=== PATIENT | male | born 1980 | race Caucasian/White ===

== ENCOUNTER → 2023-06-18 14:35 | Outpatient (CLI) | payer BC, SELFPAY ==
--- NOTE | ~2023-06-18 | XR_ITS ---
XR chest 2V DATE: 06/18/2023 14:49 INDICATION: Cough for one month TECHNIQUE: 2 views COMPARISON: 01/15/2007 FINDINGS: Normal heart size. No hilar or mediastinal enlargement. No pulmonary infiltrate or consolid ation, pleural effusion or pulmonary vascular congestion or pneumothorax is detected. IMPRESSION: Negative Reviewed, dictated and finalized at location B. IMPRESSION: Negative
== END ==
PROVIDERS: PCP Nurse Practitioner Family; Visit Provider Nurse Practitioner Family
DX: R05.9 Cough, unspecified (principal)
CPT/HCPCS: 71046

== ENCOUNTER 2023-06-19 12:34 | Outpatient (CLI) | payer BC, SELFPAY ==
[2023-06-19 15:08] LABS: Basophils Absolute Auto 0.1 K/mm3 (0.0-0.1); Basophils Percent Auto 0.9 % (0.2-1.2); Eosinophils Absolute Auto 0.2 K/mm3 (0-0.3); Eosinophils Percent Auto 3.2 % (0-4.4); Hematocrit 46.7 % (42.0-52.0); Hemoglobin 15.6 g/dL (14.0-18.0); Immature Granulocyte Absolute 0.02 K/mm3 (0.00-0.031); Immature Granulocyte Percent A 0.3 % (0-0.5); Lymphocytes Absolute Auto 1.97 K/mm3 (0.9-3.2); Lymphocytes Percent Auto 28.5 % (18.3-44.2); Mean Corpuscular HGB Conc 33.4 g/dl (32-36); Mean Corpuscular Hemoglobin 29.7 pg (26-34); Mean Corpuscular Volume 88.8 fl (80-100); Mean Platelet Volume 10.4 fl (7.4-10.4); Monocytes Absolute Auto 0.4 K/mm3 (0.1-0.6); Monocytes Percent Auto 5.5 % (2.6-8.5); Neutrophils Absolute Auto 4.3 K/mm3 (1.3-6.7); Neutrophils Percent Auto 61.6 % (45.5-73.1); Platelet Count Result 300 k/mm3 (150-375); Red Blood Count 5.26 M/mm3 (4.6-6.20); Red Cell Distribution Width 12.2 % (11.5-14.5); White Blood Count 6.9 K/mm3 (4.5-10.0)
[2023-06-19 15:39] LABS: Alanine Aminotransferase 33 U/L (6-50); Albumin Level 4.8 g/dL (3.5-5.1); Alkaline Phosphatase 64 U/L (38-126); Anion Gap 11 mmol/L (8-16); Aspartate Amino Transferase 39 U/L (17-59); Bilirubin,Total 1.2 mg/dL (0.2-1.3); Blood Urea Nitrogen 18 mg/dL (9-20); Calcium 9.5 mg/dL (8.4-10.2); Carbon Dioxide 29 mmol/L (22-30); Chloride 101 mmol/L (98-107); Cholesterol 237 mg/dL (0-200); Estimated Glomerular Filt Rate > 60; Glucose 101 mg/dL (65-110); HDL Direct 50 mg/dL; LDL Cholesterol Direct 149 mg/dL; Potassium 4.3 mmol/L (3.4-5.0); Sodium 141 mmol/L (137-145); Triglycerides 125 mg/dL (<150)
[2023-06-22 10:41] LABS: Vitamin D 1,25 (OH)2 Total 43 pg/mL (18-72); Vitamin D2 1,25 (OH)2 <8 pg/mL; Vitamin D3 1,25 (OH)2 43 pg/mL
[2023-06-23 21:24] LABS: PSA, Total 0.7 ng/mL (<=4.0)
== END 2023-06-19 12:35 | disposition home or self-care (01) ==
LOC: ANHGOSHLAB 12:36
PROVIDERS: PCP Nurse Practitioner Family; Visit Provider Nurse Practitioner Family
DX: Z00.00 Encounter for general adult medical examination without abnormal findings (principal); E55.9 Vitamin D deficiency, unspecified; Z12.5 Encounter for screening for malignant neoplasm of prostate; I10 Essential (primary) hypertension
CPT/HCPCS: 36415; 80053; 80061; 82607; 82652; 84153; 84154; 84443; 85025

== ENCOUNTER 2023-07-24 00:44 | Day surgery (SDC) | payer BC, SELFPAY ==
[2023-07-16 15:12] VITALS: BMI 28.1
[2023-07-24 09:02] VITALS: BP 110/80; PULSE 76; RESP 18; TEMP 36.4; O2SAT 100
[2023-07-24] MEDS: LACTATED RINGERS 1,000 ML 150 ML IV CONT (09:08)
--- NOTE | 2023-07-24 09:21 | PM.HPGS ---
History of Present Illness History of Present Illness Consent: Risks, benefits, and alternatives have been discussed and questions answered. Patient agrees to proceed with procedure. Chief complaint: Fam hx of malignant neoplasm of digestive organs Narrative: Jacek Clark is a 43 year old male here for first screening colonoscopy, father and grandfather had colon cancer Review of Systems Constitutional: Constitutional: Denies headache(s) and Denies weakness Eyes: Eyes: Denies blurry vision ENT: Reports Normal hearing present, Denies headache(s) and Denies neck pain Cardiovascular: Cardiovascular: Denies chest pain and Denies dyspnea Respiratory: Respiratory: Denies dyspnea Gastrointestinal: Gastrointestinal: Reports no additional gastrointestinal complaints Genitourinary: Genitourinary: Denies dysuria Musculoskeletal: Musculoskeletal: Denies neck pain Integumentary/Breasts: Skin/Breast: Denies dry skin Neurologic: Reports Normal hearing present, Denies headache(s) and Denies weakness Psychiatric: Psychiatric: Denies anxiety Endocrine: Endocrine: Denies change in body appearance Hematologic/Lymphatic: Hematologic/Lymphatic: Denies easy bleeding Allergic/Immunologic: Allergic/Immunologic: Denies urticaria PMFSH Past Medical History Medical History (Updated 07/24/23 @ 09:21 by Mayank Gutiérrez MD) Allergies Family history of colon cancer Migraine Family History Family History (Updated 06/18/23 @ 14:21 by Roberta Vazquez) Father Colon cancer Grandparent , at age 44 Carcinoma of colon Mother Hypertension Social History Social History (Updated 06/18/23 @ 14:22 by Roberta Vazquez) Social History: Caffeine- none Smoking status: Former smoker Tobacco type: cigarettes Alcohol intake: current Drinks per week: 2 Alcohol use details: wine Substance use: never Substance use type: does not use Lack of Transportation: No Lack of Food: Never True Current Housing: I Have Housing Concerned About Future Housing: No Difficulty Paying Gas/Electric Bills: No Difficulty Paying for Meds: No Currently Unemployed: No Education: Associate Degree Difficulty w/ Childcare or Family Care: No Living arrangements: alone Occupation/Education: occupation 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 Gender identity (if verbalized by the patient): Male Spiritual care concerns: No Agree to blood products: Yes Meds Home Medications and Allergies Home Medications Medication Instructions Recorded Confirmed Type No Home Medications 06/18/23 07/16/23 History Allergies Allergy/AdvReac Type Severity Reaction Status Date / Time No Known Allergies Allergy Verified 07/24/23 09:01 Vital Signs Vital Signs - 24 hr 07/24/23 09:02 Temperature 97.6 F Pulse Rate 76 Respiratory Rate 18 Blood Pressure 110/80 Pulse Oximetry 100 Oxygen Delivery Room Air Exam Const: General: comfortable and no acute distress HENMT: Face/Nose/Sinus: Normal nares present Eyes: General: appearance normal, both eyes and all related structures Neck: Neck: no JVD Resp: Auscultation: clear to auscultation bilaterally Cardio: Rate: regular rate Rhythm: regular rhythm GI: Inspection: non-distended GI Palp: Yes Soft to palpation Skin: General skin exam: normal color Neuro: General: gait normal Speech: normal speech Extrem: General: normal to inspection Psych: Mental Status: mental status grossly normal Assessment and Plan Assessment and plan (1) Family history of colon cancer: Code(s): Z80.0 - Family history of malignant neoplasm of digestive organs Status: Acute Assessment and Plan: colonoscopy
--- NOTE | 2023-07-24 09:24 | WPDANESEPPF ---
Anes - Initial Pre Proc Eval Procedure: Operation Date: 07/24/23 11:00 Proposed Procedures p Colonoscopy - Mayank Gutiérrez MD Date/Time: 07/24/23 09:24 Surgeon: Mayank Gutiérrez MD Pre Op Diagnosis: Fam hx of malignant neoplasm of digestive organs Patient Data Age: 43 Gender: M Height: 1.73 m Weight: 81.2 kg Last Vital Signs Temp 97.6 F 07/24/23 09:02 Pulse 76 07/24/23 09:02 Resp 18 07/24/23 09:02 BP 110/80 07/24/23 09:02 Pulse Ox 100 07/24/23 09:02 O2 Del Method Room Air 07/24/23 09:02 Allergies Allergy/AdvReac Type Severity Reaction Status Date / Time No Known Allergies Allergy Verified 07/24/23 09:01 Home Medications Medication Instructions Recorded Confirmed Type No Home Medications 06/18/23 07/16/23 History Patient hx anesthesia problems: none Family hx anesthesia problems: none Results Review: All pre-operative results and documents have been reviewed as part of the pre-operative evaluation. [facility] Past Medical History Medical History (Updated 07/24/23 @ 09:21 by Mayank Gutiérrez MD) Allergies Family history of colon cancer Migraine Family History Family History (Updated 06/18/23 @ 14:21 by Roberta Vazquez) Father Colon cancer Grandparent , at age 44 Carcinoma of colon Mother Hypertension Social History Social History (Updated 06/18/23 @ 14:22 by Roberta Vazquez) Social History: Caffeine- none Smoking status: Former smoker Tobacco type: cigarettes Alcohol intake: current Drinks per week: 2 Alcohol use details: wine Substance use: never Substance use type: does not use Lack of Transportation: No Lack of Food: Never True Current Housing: I Have Housing Concerned About Future Housing: No Difficulty Paying Gas/Electric Bills: No Difficulty Paying for Meds: No Currently Unemployed: No Education: Associate Degree Difficulty w/ Childcare or Family Care: No Living arrangements: alone Occupation/Education: occupation 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 Informed Consent: The patient's anesthetic plan and its attendant risks and benefits were discussed with the patient/family/POA. Questions were solicited and answers provided to the satisfaction of the patient/family/POA.
[2023-07-24 09:42] VITALS: BP 103/60; PULSE 68; RESP 18; O2SAT 96
[2023-07-24 09:52] VITALS: BP 104/67; PULSE 60; RESP 18; O2SAT 96
[2023-07-24 10:02] VITALS: BP 105/71; PULSE 62; RESP 18; O2SAT 96
[2023-07-24 10:12] VITALS: BP 120/84; PULSE 54; RESP 18; O2SAT 97
--- NOTE | 2023-07-24 10:14 | SUR.PHASEII ---
1012: ATTEMPTED TO STAND PT, REMAINS DROWSY, DIZZY, UNABLE TO STAND WITH ASSIST OF TWO, PT LAID BACK IN STRETCHER WITH COLD WASH RAG TO HEAD, B/P 120/84, HR 54, PT A&O X3, TALKING WITHOUT DIFFICULTY, DR DEVINE MADE AWARE, DR DEVINE SAW PT AT BEDSIDE. 1020: PT STATES HE FEELS BETTER, ABLE TO STAND WITH STAND BY ASSIST OF ONE, TO CHAIR, DRESSING SELF. DISCHARGED WITHOUT COMPLICATIONS.
== END 2023-07-24 10:22 | disposition home or self-care (01) ==
PROVIDERS: PCP Nurse Practitioner Family; Visit Provider Internal Medicine Gastroenterology
PROC: 0DJD8ZZ Inspection of Lower Intestinal Tract, Via Natural or Artificial Opening Endoscopic (ICD-10-PCS; CPT 45378; principal; 2023-07-24 11:00)
DX: Z12.11 Encounter for screening for malignant neoplasm of colon (principal); K64.8 Other hemorrhoids; Z80.0 Family history of malignant neoplasm of digestive organs; Z87.891 Personal history of nicotine dependence
CPT/HCPCS: 45378; J2704; J7120

== ENCOUNTER 2024-11-27 07:43 | Emergency (ER) | payer BC, SELFPAY ==
--- NOTE | ~2024-11-27 | XR_ITS ---
EXAMINATION: XR shoulder RT min 2V DATE: 11/27/2024 09:18 INDICATION: Right shoulder pain post recent lifting injury TECHNIQUE: AP internally and externally rotated, AP oblique externally rotated and transscapular Y vi ews of the right shoulder were obtained. COMPARISON: None FINDINGS: Normal alignment. No fracture. Glenohumeral joint is normal. Mild acromioclavicular osteoarthritis. Right lung is clear but with small lung volume. IMPRESSION: Mild right acromioclavicular osteoarthritis. Reviewed, dictated and finalized at location A. DENCE DIRECTOR
[2024-11-27 07:46] VITALS: BP 130/89; PULSE 76; RESP 18; TEMP 36.4; O2SAT 99
--- OUTSIDE RECORDS SUMMARY | 2024-11-27 07:48 | XMS_ITS | Clinical Summary ---
Author Organization [facility] Address [facility] [place] [address] Care Team Providers Care Cloud Developer Name Role Phone None, Provider MD Primary Care Provider Unavaila ble Allergies Active Allergy Reactions Criticality Noted Date Comments Amoxicillin Hives Low 06/15/2012 Unknown Patient had amoxicillin as a child Medications No known medications Social History Tobacco Use Types Packs/Day Years Used Date Smoking Tobacco: Former Smokeless Tobacco: Former Alcohol Use Standard Drinks/Week Comments Yes 1.7 (1 standard drink = 0.6 oz p ure alcohol) Occasional Sex and Gender Information Value Date Recorded Sex Assigned at Not on file Legal Sex Male 7:20 PM CDT Gender Identity Not on file Sexual Orientation Not on file Last Filed Vital Signs Vital Sign Reading Time Taken Comments Blood Pressure 122/86 03/08/2021 4:26 PM CDT Pulse 79 03/08/2021 4:26 PM CDT Temperature 36.7 C (98.1 F) 03/08/2021 4:26 PM CDT Respiratory Rate 18 03/08/2021 4:26 PM CDT Oxygen Saturation 97% 03/08/2021 4:26 PM CDT Inhaled Oxygen Concentration - - Weight 81.6 kg (180 lb) 03/08/2021 4:26 PM CDT Height 172.7 cm (5' 8 ) 03/08/2021 4:26 PM CDT Body Mass Index 27.37 03/08/2021 4:26 PM CDT Plan of Treatment Health Maintenance Due Date Last Done Comments Colorectal Cancer Screening Colonoscopy (10 Years) 1978 Annual Physical 1981 Hepatitis C 1996 DTaP, Tdap and Td Vaccines ( 1 - Tdap) 1997 Hepatitis B Vaccines (1 of 3 - 19+ 3-dose series) 1997 COVID-19 Vaccine (2023-2 5 season) 2024 Influenza Adult (#1) 2024 HPV Vaccines Aged Out No longer eligi ble based on patient's age to complete this topic Meningococcal B Vaccine Aged Out No l onger eligible based on patient's age to complete this topic Meningococcal Vaccine Aged Out No ricardo ewa eligible based on patient's age to complete this topic Pneumococcal Vaccine: Pediat rics (0 to 5 Years) and At-Risk Patients (6 to 64 Years) Aged Out No longer eligible b ased on patient's age to complete this topic RSV Immunizations Under 20 Months Aged Out No longer eligible based on patient's age to complete this topic Additional Health Concerns Infection Onset Date Last Indicated MRSA 11/11/2018 11/11/2018 Care Teams Cloud Developer Relationship Specialty Start Date End Date None, Provider, PCP - General 03/08/21
--- OUTSIDE RECORDS SUMMARY | 2024-11-27 07:48 | XMS_ITS | Continuity of Care Document ---
Author Organization [facility]. If a dditional information is needed, contact Health Information Management at [phone] [place] [address] Phone Care Team Providers Care Tower Crane Operator Name Role Phone Unavailable Unavailable Unavailable Unavailable Unavailable Unavailable Unavailable Unavailable Unavailable Problems Thoracic back pain Onset:01-Apr-2023 Albert Abbott DO Allergies and Adverse Reactions No Known Drug Allergies(Gulshan rgy) Onset: 01-Apr-2023 Social History Smoking Status Never smoked tobacco Recorded: 01-Apr-2023
[2024-11-27 09:20] VITALS: BP 122/98; PULSE 74; RESP 18; O2SAT 100
[2024-11-27] MEDS: ACETAMINOPHEN 500 MG TABLET 1000 MG PO (09:44)
[2024-11-27] MEDS: KETOROLAC (*BKC) 60 MG/2 ML VIAL IM (09:47)
--- OUTSIDE RECORDS SUMMARY | 2024-11-27 09:49 | XMS_ITS | Clinical Summary ---
Author Organization [facility] Address [facility] [place] [address] Care Team Providers Care Bolt Cutter Name Role Phone None, Provider MD Primary [...] Last Indicated MRSA 11/11/2018 11/11/2018 Care Teams Bolt Cutter Relationship Specialty Start Date End Date None, Provider, PCP - General 03/08/21
--- NOTE | 2024-11-27 09:50 | WC.ED.TRAUMA ---
HPI - Trauma General Chief Complaint: Extremity Injury, Upper Stated Complaint: I think I tore my rotator cuff Time Seen by Provider: 11/27/24 08:58 Source: patient Mode of arrival: ambulatory Limitations: no limitations History of Present Illness HPI narrative: Patient is a 44-year-old male who presents the ED with report of right shoulder pain. Patient reports he was lifting weights yesterday and doing a new workout routine in which he was doing rapid fire dumbbell presses. Patient states that he did not initially have pain while performing the exercise, but began having pain throughout the night last night which has progressively worsened since then. Is concerned he injured his rotator cuff. States he took ibuprofen and a leftover Vicodin at home without improvement. Denies numbness throughout the arm. Denies neck or back pain. Related Data Allergies Allergy/AdvReac Type Severity Reaction Status Date / Time No Known Allergies Allergy Verified 11/27/24 07:44 Review of Systems Review of Systems: All systems reviewed & are unremarkable except as noted in HPI. All systems reviewed & are unremarkable except as noted in HPI and below PMFSH Past Medical History Medical History Family history of colon cancer Migraine Allergies Family History Family History Father Colon cancer Grandparent , at age 44 Carcinoma of colon Mother Hypertension Social History Social History Social History: Caffeine- none Smoking status: Former smoker Tobacco type: cigarettes Alcohol intake: current Drinks per week: 2 Alcohol use details: wine Substance use: never Substance use type: does not use Lack of Transportation: No Lack of Food: Never True Current Housing: I Have Housing Concerned About Future Housing: No Difficulty Paying Gas/Electric Bills: No Difficulty Paying for Meds: No Currently Unemployed: No Education: Associate Degree Difficulty w/ Childcare or Family Care: No Living arrangements: alone Occupation/Education: occupation 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 HEAD: Normocephalic, atraumatic. RESPIRATORY: Airway patent, respirations nonlabored. CARDIOVASCULAR: Regular rate and rhythm. Radial pulses intact and easily palpable. MUSCULOSKELETAL: Moves all extremities. No gross deformities. Limited range of motion in all directions of right shoulder due to pain. Tenderness to palpation over anterior right shoulder joint. No significant swelling. Biceps tendon intact w/o palpable deformity. Sensation intact throughout RUE. Group Product Manager strength intact. No tenderness throughout cervical or thoracic midline spine. SKIN: Warm, dry, normal color. NEURO: A&O X3. Speech clear. Steady gait. No ataxic movements. PSYCHIATRIC: Appropriate mood and affect. Normal interaction. Course Vital Signs Vital signs: Vital Signs Temperature 97.6 F 11/27/24 07:46 Pulse Rate 76 11/27/24 07:46 Respiratory Rate 18 11/27/24 07:46 Blood Pressure 130/89 11/27/24 07:46 Pulse Oximetry 99 11/27/24 07:46 Oxygen Delivery Room Air 11/27/24 07:46 Temperature 97.6 F 11/27/24 07:46 Pulse Rate 74 11/27/24 09:20 Respiratory Rate 18 11/27/24 09:20 Blood Pressure 122/98 H 11/27/24 09:20 Pulse Oximetry 100 11/27/24 09:20 Oxygen Delivery Room Air 11/27/24 07:46 MDM - Trauma MDM Narrative Medical decision making narrative: Patient?s injury is consistent with musculoskeletal etiology. No signs of neurologic or vascular compromise on physical examination. Compartments are soft without signs of compartment syndrome. XR R shoulder showing mild AC osteoarthritis. No other abnormalities noted. No fracture. No dislocation. Discussed imaging findings with patient. Discussed possibility of muscular etiology versus rotator cuff injury. Patient given sling for comfort and support. Given pain medication in the ED. Discussed rice therapy, recommended close follow-up with orthopedics for further evaluation. Will prescribe muscle relaxers for home. Patient is felt to be stable for discharge home and further outpatient management and treatment. Given return precautions. D/C in stable condition. Medical Records Attestation: I reviewed the patient's medical records. Imaging Data Attestation: I personally reviewed and interpreted this imaging study as follows: Radiologist's impression: ITS Impressions Shoulder X-Ray 11/27/24 09:26 IMPRESSION: Mild right acromioclavicular osteoarthritis. Discharge Plan Discharge Clinical Impression: Strain of right shoulder Patient Disposition: Home, Self-Care Condition: Stable Instructions: Antibiotic Form, Rotator Cuff Injury (ED), How to Use a Sling (ED), Shoulder Sprain (ED) Additional Instructions: Your x-ray showed mild arthritis changes of your shoulder. There was no fracture. It is possible you may have injured/strained your rotator cuff. Follow-up with orthopedics for further evaluation. Call office to make appointment. Utilize sling for comfort and support. Continue Tylenol, ibuprofen as needed for pain. Recommend frequent icing to shoulder. Take muscle relaxers as needed and prescribed. Recommend taking these at night as they may cause sedation. Do not drive, operate heavy machinery, drink alcohol while on muscle relaxers as this may cause further sedation. Return to the ED if you experience recurrent injury, severe pain, numbness, or any other symptoms of concern. Patient Language: Vietnamese Prescriptions: New cyclobenzaprine 5 mg tablet 5 mg PO TID PRN (Reason: muscle spasm) Qty: 10 0RF Follow-up/Referrals: Darron Ward MD [Physician] - (ORTHOPEDICS) UNKNOWN,DOCTOR [Primary Care Provider] - Time of Disposition: 09:51
== END 2024-11-27 10:02 | disposition home or self-care (01) ==
PROVIDERS: Emergency Provider Physician Assistant
DX: S46.911A Strain of unspecified muscle, fascia and tendon at shoulder and upper arm level, right arm, initial encounter (principal); Z87.891 Personal history of nicotine dependence; M19.011 Primary osteoarthritis, right shoulder; X50.3XXA Overexertion from repetitive movements, initial encounter; X50.0XXA Overexertion from strenuous movement or load, initial encounter; Y93.B3 Activity, free weights
CPT/HCPCS: 73030; 96372; 99283; A4565; A9270; J1885